=== PATIENT | female | born 1995 | race Caucasian/White ===

== ENCOUNTER 2021-09-25 02:18 | Emergency (ER) | payer OTHER, MEDICAID, SELFPAY ==
[2021-09-25 02:20] VITALS: BP 130/84; PULSE 74; RESP 18; TEMP 36.6; O2SAT 98
[2021-09-25 02:23] VITALS: BP 135/82; PULSE 83; RESP 16; TEMP 36.6; O2SAT 97
--- NOTE | 2021-09-25 02:25 | ED_ITS ---
HPI - Eye Problem General Chief complaint: Eye Problems Stated complaint: glue in eyes Time Seen by Provider: 09/25/21 02:24 Source: patient Mode of arrival: Ambulatory Limitations: no limitations History of Present Illness HPI Narrative: This is a 26-year-old female who comes emergency department with complaint of crazy glue in her eyes. She states she put a small amount on an air mattress. When she pushed down on the air mattress it blew the crazy glue into her eyes and she feels like she has super glue in her left eye. It is irritated and uncomfortable. She does not appreciated any changes to her vision. This happened shortly before she came into the emergency department. She has some irritation on the right but not as significant. Patient states she does not wear contacts. She does not were glasses. She has never had any eye intervention or surgery. She does not have an insurance service representative or plant control operator she follows with. Patient is otherwise healthy. She denies any other medical issues and does not take any medications daily. She states she is allergic to an antibiotic that starts with P but does not recall the name. She states she is up-to-date with her tetanus in the last 1-2 years. Related Data Patient tetanus UTD: Yes Review of Systems Review of Systems ROS Unobtainable: All systems reviewed & are unremarkable except as noted in HPI and below Patient History Social History Smoking Status: Never smoker Exam Narrative Exam Narrative: GEN: well nourished, well appearing female, alert and oriented x 3, patient appears to be in mild distress. HEENT: Atraumatic, pupils are equal round reactive to light, extraocular movements are intact, nares are clear, TMs are clear with no fluid, there is no conjunctival pallor. Throat is clear without any exudates, erythema, tonsillar enlargement or uvular deviation Visual acuity: right [20/25], left [20/25] without correction. General: no globe trauma Eyelids: normal inspection, eyelids everted for exam bilaterally. Conjunctiva/Sclera: injected bilaterally, left greater than right. Corneas: normal inspection on right, on left there is a small amount of clear substance on the cornea directly over the pupil. No additional foreign body is noted. Examined with fluroscein, patient does have have punctate uptake of the sclera and cornea but no ulcerations or abrasions appreciated. EOM: intact, no palsy/entrapment Pupils: PERRL, normal accomadation, pupil normal Anterior Chambers: normal inspection, no hypema Posterior: normal fundoscopic on bilaterally HEART: Regular rate and rhythm without murmur, clicks, rubs. LUNGS:Lungs clear to auscultation, no wheezes, rales, crackles, chest moves symmetrically ABD:bowel sounds normal, soft, non-tender, no guarding, rebound, rigidity, no masses noted, no hepatosplenomegaly MSCL: Non-tender, full range of motion, normal gait NEURO:CN 2-12 intact, sensation normal SKIN: No rash, erythema other skin changes noted otherwise noted. Initial Vital Signs Initial Vital Signs: Vital Signs Temperature 98 F 09/25/21 02:20 Pulse Rate 74 09/25/21 02:20 Respiratory Rate 18 09/25/21 02:20 Blood Pressure 130/84 09/25/21 02:20 Pulse Oximetry 98 09/25/21 02:20 Course Orders Ordered: ED Orders 09/25/21 03:20 COVID19 -Nasal swab/Pre-Proc Stat Discontinued Medications Erythromycin (Erythromycin Ophth 1 Gm Oint) 1 applic EYE-BOTH NOW ONE Stop: 09/25/21 02:25 Last Admin: 09/25/21 02:32 Dose: 1 applic Documented by: DAISHA Fluorescein Sodium (Fluorescein 1 Mg Strip) 1 mg EYE-BOTH NOW ONE Stop: 09/25/21 02:25 Last Admin: 09/25/21 02:30 Dose: 1 mg Documented by: DAISHA Oxycodone/Acetaminophen (Oxycodone/Apap 5/325 Prepack) 1 bottle MISC SEEINSTR ONE Stop: 09/25/21 03:23 Last Admin: 09/25/21 03:32 Dose: 1 bottle Documented by: DAISHA Proparacaine HCl (Proparacaine 0.5% Ophth Dolly) 1 drops EYE-BOTH NOW ONE Stop: 09/25/21 02:25 Last Admin: 09/25/21 02:30 Dose: 1 drop Documented by: DAISHA Reevaluation(s) Reevaluation #1: Patient and I discussed Ophthalmology is recommendations. Patient and her h usband have transportation down to her review in our comfortable going via private auto. Transport was offered but they deferred. Plan to continue erythromycin ointment has per ophthalmology. Patient is to arrive around 9:00 a.m. on her review emergency department for evaluation by ophthalmology. Time: 03:20 Consultations Consultation #1: [facility] ophthalmology, Dr. Watson asks the patient be transferred down for direct ophthalmology evaluation. He requests that patient arrive around 9:00 a. m. They may have 2-3 additional more doses of erythromycin ointment. Transfer center asks for covid swab for transfer. Plan for transfer via private auto at this time. Vital Signs Vital signs: Vital Signs - 8 hr 09/25/21 02:20 09/25/21 02:23 09/25/21 03:31 Temperature 98 F 97.8 F Pulse Rate 74 83 80 Respiratory Rate 18 16 18 Blood Pressure 130/84 135/82 Blood Pressure [Left Arm] 149/83 H Pulse Oximetry 98 97 98 09/25/21 03:54 Temperature Pulse Rate 63 Respiratory Rate 20 Blood Pressure 119/60 Blood Pressure [Left Arm] Pulse Oximetry 97 MDM - Eye Problem Lab Data Labs: Lab Results 09/25/21 Range/Units 03:20 SARS-CoV-2 (PCR) Negative (Negative) MDM Narrative Medical decision making narrative: This is a 26-year-old female who comes with complaint of crazy glue in her eye particularly the left. Patient appears to have aerosolized or blown increasingly inter and I am able to visualize small amount directly over the cornea at the pupil. I do not appreciate any other foreign bodies or substances in the eye. They are injected. She had some improvement with discomfort with a pair cane. Floor seen exam shows some punctate uptake but no obvious abrasion or ulceration. Her visual acuity is 20/25 bilaterally. Erythromycin ointment was applied. Patient's tetanus is up-to-date. We do not have Ophthalmology available here and they were consulted at [facility]. They would like see patient this morning and request that she arrive around 9:00 a.m. to the [facility] Emergency Department. COVID swab was obtained at the request transfer center and is negative. Discharge Plan Departure Patient Disposition: [facility] Clinical Impression: Foreign body in eye Activity Restrictions/Additional Instructions: Go to [facility] Emergency Department to be evaluated by Ophthalmology. They have asked that you arrive by 9:00 a.m. to the emergency department. Take all paperwork with you. Continue to place erythromycin ointment to the affected eye, you may perform this 2-3 times until 9am. You may take narcotic pain medication 1 tablet every 4-6 hours as needed for pain. This medication can make you sleepy do not drive, perform hazardous activities or make any major decisions while taking it. This medication will make you constipated please take a stool softener once to twice daily until stools are soft and regular.
[2021-09-25] MEDS: PROPARACAINE 0.5% OPHTH SOL 1 DROPS EYE-BOTH (02:30)
[2021-09-25] MEDS: FLUORESCEIN 1 MG STRIP EYE-BOTH (02:30)
[2021-09-25] MEDS: ERYTHROMYCIN OPHTH 1 GM OINT 1 APPLIC EYE-BOTH (02:32)
[2021-09-25 03:31] VITALS: BP 149/83; PULSE 80; RESP 18; O2SAT 98
[2021-09-25] MEDS: OXYCODONE/APAP 5/325 PREPACK 1 BOTTLE MISC (03:32)
[2021-09-25 03:45] LABS: COVID19 -Nasal RAPID Negative (Negative)
[2021-09-25 03:54] VITALS: BP 119/60; PULSE 63; RESP 20; O2SAT 97
== END 2021-09-25 04:03 | disposition short-term general hospital (02) ==
PROVIDERS: Emergency Provider Emergency Medicine
DX: T15.92XA Foreign body on external eye, part unspecified, left eye, initial encounter (principal); T15.91XA Foreign body on external eye, part unspecified, right eye, initial encounter; X58.XXXA Exposure to other specified factors, initial encounter; Y93.89 Activity, other specified; Z20.822 Contact with and (suspected) exposure to COVID-19
CPT/HCPCS: 87635; 99282; 99283; C9803